=== PATIENT | male | born 1955 | race Caucasian/White ===

== ENCOUNTER 2020-06-30 21:40 | Emergency (ER) | payer MEDICAID ==
[~2020-06-30] VITALS: Ht 177.8 cm; Wt 75.0 kg
[2020-06-30] MEDS ORDERED: IOHEXOL 300 MG/ML 50 ML VIAL. ONE (22:59)
[2020-06-30] MEDS ORDERED: IOHEXOL 300 MG/ML 50 ML VIAL. IJ ONE (23:00)
--- NOTE | 2020-06-30 23:05 | PHYS DOC ---
Past Medical History Past Medical History: Other Additional Past Medical Histor: peg tube, gout, multiple contractures Past Surgical History: Other Additional Past Surgical Histo: unknown Smoking Status: Unknown if ever smoked Alcohol Use: None General Adult EDM: Chief Complaint: GI PROBLEM HPI: HPI: Patient is a 65 year old male sent for [facility] for g-tube leaking. Patient is non-verbal. Patients old g-tube was removed and new one replaced. No complications. Abdomen soft. Review of Systems: Review of Systems: unable to obtain due to patients medical history Heart Score: Risk Factors: Risk Factors: DM, Current or recent (<one month) smoker, HTN, HLP, family history of CAD, obesity. Risk Scores: Score 0 - 3: 2.5% MACE over next 6 weeks - Discharge Home Score 4 - 6: 20.3% MACE over next 6 weeks - Admit for Clinical Observation Score 7 - 10: 72.7% MACE over next 6 weeks - Early Invasive Strategies Allergies: Allergies: Allergies Coded Allergies Type Severity Reaction Last Updated Verified Beef Containing Products Allergy Unknown 06/30/20 Yes Physical Exam: PE: Constitutional: Well developed, well nourished, no acute distress, non-toxic appearance. [] HENT: Normocephalic, atraumatic, bilateral external ears normal, Eyes: EOMI, conjunctiva normal, no discharge. [] Cardiovascular:Heart rate regular rhythm, Lungs & Thorax: No respiratory distress Abdomen: Bowel sounds normal, soft, g-tube in place, insertion site without surrounding erythema and/or bleeding Skin: Warm, dry, no erythema, no rash. [] Extremities: contracted Neurologic: Alert, patient with contracts Current Patient Data: Vital Signs: Vital Signs Date Time Temp Pulse Resp B/P (MAP) Pulse Ox O2 Delivery O2 Flow Rate FiO2 06/30/20 21:44 98.7 88 18 110/89 (96) 98 Room Air 98.7 EKG: EKG: [] Radiology/Procedures: Radiology/Procedures: [] Course & Med Decision Making: Course & Med Decision Making Pertinent Labs and Imaging studies reviewed. (See chart for details) [] Procedure performed under sterile technique. Sterile gloves used Area cleaned with betadine old G-tube 20F removed 12cc ns removed from bulb old g-tube easily removed. Tip of new g-tube lubricated with lubricant that was included in package. New g-tubed inserted. hub level 5-6cm. 20cc ns placed in bulb Gastric contact pulled back KUB with contrast performed for placement-in proper position Fabian Disclaimer: Fabian Disclaimer: This electronic medical record was generated, in whole or in part, using a voice recognition dictation system. Departure Departure Impression: Primary Impression: Gastrostomy tube in place Disposition: HOME, SELF-CARE Condition: STABLE Patient Instructions: Care of a Feeding Tube Site Justicifation of Admission Dx: Justifications for Admission: Justification of Admission Dx: N/A RAY MADRIGAL DO Jun 30, 2020 23:05
[2020-06-30] MEDS ORDERED: CONTRAST GIVEN. MC PRN (23:15)
--- NOTE | 2020-07-01 00:07 | RAD ---
KUB, supine Clinical Indication: Reason: push contrast replacement of g tube 50cc Omni 180 Comparison: None. Findings: Gastrostomy tube overlies the stomach. The technologist injected the tube with contrast. Contrast is seen outlining the proximal stomach. No extravasation is seen to suggest malposition of the tube. No dilated small bowel is identified. There is scattered air and stool in the colon. The rectum is moderately distended with stool. No obvious organomegaly. There is arthropathy of the hips. IMPRESSION: 1. Gastrostomy tube is in appropriate position. With injection of contrast there is no evidence of leak. 2. Nonobstructive bowel gas pattern. 3. Moderate distention of the rectum with stool. Electronically signed by: Shade Franco MD (07/01/2020 12:04 AM) [facility]
[2020-07-01 00:11] VITALS: BP 114/72
== END 2020-07-01 01:10 | disposition home or self-care (01) ==
LOC: ER 21:40
DX: K94.23 Gastrostomy malfunction (principal); M10.9 Gout, unspecified; Z91.018 Allergy to other foods; Y83.8 Other surgical procedures as the cause of abnormal reaction of the patient, or of later complication, without mention of misadventure at the time of the procedure; Y92.89 Other specified places as the place of occurrence of the external cause
CPT/HCPCS: 43762; 74018; 99284; Q9967

== ENCOUNTER 2020-11-07 18:39 | Emergency (ER) | payer MEDICAID, MEDICARE ==
[~2020-11-07] VITALS: Ht 172.7 cm; Wt 75.0 kg
--- NOTE | 2020-11-07 18:47 | PHYS DOC ---
Past Medical History Past Medical History: Other Additional Past Medical Histor: peg tube, gout, multiple contractures Past Surgical History: Other Additional Past Surgical Histo: unknown Smoking Status: Unknown if ever smoked Alcohol Use: None General Adult EDM: Chief Complaint: GTUBE REPLACEMENT/MALFUNCTION HPI: HPI: Patient is a 65-year-old male presenting from local [facility] ([place]) via EMS for G-tube replacement. Patient who is otherwise been asymptomatic and at baseline health reportedly had dislodgment of current G-tube. [facility] personnel tried to replace g-tube but per x-ray was not in correct positioning and so, they called EMS for transport to our facility for evaluation and replacement of G-tube. No recent fever or COVID-19 contact Review of Systems: Review of Systems: Fourteen body systems of review of systems have been reviewed. See HPI for pertinent positives and negative responses, other del cid all other systems are negative, non-pertinent or non-contributory Heart Score: Risk Factors: Risk Factors: DM, Current or recent (<one month) smoker, HTN, HLP, family history of CAD, obesity. Risk Scores: Score 0 - 3: 2.5% MACE over next 6 weeks - Discharge Home Score 4 - 6: 20.3% MACE over next 6 weeks - Admit for Clinical Observation Score 7 - 10: 72.7% MACE over next 6 weeks - Early Invasive Strategies Allergies: Allergies: Allergies Coded Allergies Type Severity Reaction Last Updated Verified Beef Containing Products Allergy Unknown 06/30/20 Yes Physical Exam: PE: Constitutional: Well developed, well nourished, no acute distress, non-toxic appearance. Nonverbal HENT: Normocephalic, atraumatic, bilateral external ears normal, oropharynx moist, no oral exudates, nose normal. Eyes: PERRLA, EOMI, conjunctiva normal, no discharge. Neck: Normal range of motion, no tenderness, supple, no stridor. Cardiovascular: Heart rate regular, sinus rhythm, no murmurs rubs or gallops Lungs & Thorax: Bilateral breath sounds clear to auscultation Abdomen: Bowel sounds normal, soft, no tenderness, no masses, no pulsatile masses. Nonsurgical abdomen, no peritoneal signs. Well-appearing PEG-tube present to LUQ area, well appearing without dehiscence or other signs of infection. Skin: Warm, dry, no erythema, no rash. Back: No tenderness, no CVA tenderness. Extremities: No tenderness, no cyanosis, no clubbing, ROM intact, no edema. Neurologic: Alert, grossly normal motor & sensory function, no focal deficits noted. Appears at baseline health Psychologic: unable to fully assess given preexisting deficits Current Patient Data: Vital Signs: Vital Signs Date Time Temp Pulse Resp B/P (MAP) Pulse Ox O2 Delivery O2 Flow Rate FiO2 11/07/20 20:42 107 20 120/81 (94) 93 Room Air 11/07/20 20:12 104 119/84 (96) 93 Room Air 11/07/20 19:42 107 117/82 (94) 93 Room Air 11/07/20 19:12 107 20 127/83 (98) 95 Room Air 11/07/20 19:00 99.7 104 20 117/82 (94) 94 Room Air 99.7 EKG: EKG: [] Radiology/Procedures: Radiology/Procedures: AP abdomen radiograph 11/07/2020 CLINICAL HISTORY: Post G-tube replacement. An AP supine portable digital radiograph of the abdomen was obtained after 50 cc of Omnipaque 250 were injected into the patient's gastrostomy tube by the provider. Comparison study is dated 06/30/2020. Gastrostomy tube overlies the body the stomach. Contrast is seen within the fundus and antrum of the stomach. No extravasation of contrast is noted. The abdominal bowel gas pattern is nonobstructive. A moderate to large amount stool seen throughout the colon. Very mild S-shaped curvature of the thoracolumbar spine is seen. Degenerative changes are seen involving lower thoracic and throughout the lumbar spine along with both hips. IMPRESSION: The patient's gastrostomy tube is within the body the stomach. No extravasation of contrast is seen. Electronically signed by: Haris Lewis MD (11/07/2020 7:57 PM) [id number] Course & Med Decision Making: Course & Med Decision Making Well-appearing hemodynamically stable patient presenting for G-tube exchange. Patient had indwelling 20 Burkin[place] G-tube removed and I placed an 18 Burkinan G-tube in adequate position with confirmatory radiograph with contrast. Patient well- appearing and tolerated this well. Patient stable and fit for discharge back to [facility] facility for continuity of care [place]y Disclaimer: Fabian Disclaimer: This electronic medical record was generated, in whole or in part, using a voice recognition dictation system. Additional Procedures Additional Procedures : Additional Procedures: gastric tube replacement Progress Patient had indwelling 20 Bur[place] G-tube in place with well-appearing insertion site that was supposedly not in correct positioning per [facility] facility that sent patient here. Cuff was deflated and gastric tube removed. We did not have a 20 Burkinan G-tube to use and so, decision was made to use an 18 Bur[place] tube. Sterile technique was used, tip was lubricated and inserted into stoma with 20 cc normal saline filled into balloon, tube was withdrawn to the surface of abdomen and cuff was placed on superficial portion of abdomen and correct positioning. Radiograph with contrast used and confirmed placement after procedure. There is no reported and/or observed complications Departure Departure Impression: Primary Impression: Gastrostomy tube dysfunction Disposition: 01 DC HOME SELF CARE/HOMELESS Condition: IMPROVED Referrals: FILIPE LANDON MD (PCP) Patient Instructions: Care of a Feeding Tube Site Additional Instructions: You are seen at our ER for G-tube replacement. You successfully had your G-tube placed from a 20 Bur[place] to an 18 Bur[place] tube. Repeat radiograph showed adequate positioning of G-tube. Please follow-up with your outpatient primary care physician for continuity of care. If any concerning signs or symptoms present prior to outpatient follow-up please do not hesitate to come back for repeat evaluation. It was a pleasure to take care of you and I wish you the best going forward JASON THOMAS DO Nov 07, 2020 18:47
[2020-11-07] MEDS ORDERED: CONTRAST GIVEN. MC PRN (19:15)
[2020-11-07] MEDS ORDERED: IOHEXOL 240 MG/ML 50ML VIAL. IT ONE (19:30)
--- NOTE | 2020-11-07 19:59 | RAD ---
AP abdomen radiograph 11/07/2020 CLINICAL HISTORY: Post G-tube replacement. An AP supine portable digital radiograph of the abdomen was obtained after 50 cc of Omnipaque 250 wer e injected into the patient's gastrostomy tube by the provider. Comparison study is dated 06/30/2020. G astrostomy tube overlies the body the stomach. Contrast is seen within the fundus and antrum of the s tomach. No extravasation of contrast is noted. The abdominal bowel gas pattern is nonobstructive. A m oderate to large amount stool seen throughout the colon. Very mild S-shaped curvature of the thoracol umbar spine is seen. Degenerative changes are seen involving lower thoracic and throughout the lumbar spine along with both hips. IMPRESSION: The patient's gastrostomy tube is within the body the stomach. No extravasation of contra st is seen. Electronically signed by: Haris Lewis MD (11/07/2020 7:57 PM) [id number]
[2020-11-07 22:12] VITALS: BP 142/90
== END 2020-11-07 22:17 | disposition home or self-care (01) ==
LOC: ER 18:39
DX: K94.23 Gastrostomy malfunction (principal); Z91.018 Allergy to other foods; Y83.8 Other surgical procedures as the cause of abnormal reaction of the patient, or of later complication, without mention of misadventure at the time of the procedure; Y92.89 Other specified places as the place of occurrence of the external cause
CPT/HCPCS: 43762; 74018; 99285; Q9966